=== PATIENT | female | born 1980 | race African-American/Black ===

== ENCOUNTER 2023-02-17 21:03 | Emergency (ER) | payer SELFPAY ==
[~2023-02-17] VITALS: Ht 160 cm; Wt 66.0 kg
[2023-02-17 21:56] VITALS: TEMP 98.4; O2SAT 100
[2023-02-17] MEDS ORDERED: ONDANSETRON 4MG ODT PO ONE (22:15)
[2023-02-17 22:57] LABS: HEMATOCRIT 38.1 % (36.0-48.0); HEMOGLOBIN 12.1 g/dL (12.0-16.0); MEAN CORPUSCULAR HEMOGLOBIN 30.4 pg (28.0-32.0); MEAN CORPUSCULAR VOLUME 95.4 fL (81.0-99.0); PLATELET 231 x1000/uL (130-400); RED BLOOD CELL COUNT 3.99 mill/uL (4.2-5.4); RED CELL DISTRIBUTION WIDTH 13.6 % (11.6-14.6)
[2023-02-17 23:02] LABS: CHLORIDE 109 mEq/L (98-107)
[2023-02-17] MEDS ORDERED: IBUPROFEN 600MG TABLET PO NR (23:30)
[2023-02-17] MEDS ORDERED: POTASSIUM CHLORIDE 20MEQ/PACKET PO NR (23:30)
[2023-02-18] MEDS ORDERED: AMLODIPINE 10MG TABLET PO ONE (00:15)
[2023-02-18] MEDS: AMLODIPINE 5MG TABLET PO NR ×2 (00:30→00:33)
[2023-02-18 00:52] VITALS: BP 170/81; PULSE 64; RESP 18
[2023-02-18] MEDS ORDERED: AMLO5TAB88 MT (01:01)
== END 2023-02-18 01:09 | disposition home or self-care (01) ==
LOC: ER 21:03
DX: R53.83 Other fatigue (principal); I10 Essential (primary) hypertension; Z88.8 Allergy status to other drugs, medicaments and biological substances; Z98.890 Other specified postprocedural states
CPT/HCPCS: 99284; 80053; 81025; 85027; 36415; Q0162